=== PATIENT | female | born 1955 | race Caucasian/White ===

== ENCOUNTER 2016-07-24 21:30 | Emergency (ER) | payer OTHER ==
[2016-07-24 21:18] LABS: BASOPHILS 0.6 %; BASOPHILS ABSOLUTE 0.07 10/3/uL (0.0-0.16); EOSINOPHILS 4.5 %; EOSINOPHILS ABSOLUTE 0.57 10/3/uL (0.0-0.53); IMMATURE GRANULOCYTES 0.8 %; LYMPHOCYTES 24.9 %; LYMPHOCYTES ABSOLUTE 3.16 10/3/uL (0.67-4.30); MEAN CORPUSCULAR HEMOGLOB 29.3 pg (26.0-34.0); MEAN PLATELET VOLUME 9.6 fL (9.2-13.0); MONOCYTES 5.4 %; MONOCYTES ABSOLUTE 0.69 10/3/uL (0.21-1.20); NEUTROPHILS 63.8 %; NEUTROPHILS ABSOLUTE 8.08 10/3/uL (2.02-8.40); PLATELET COUNT 295 10/3/uL (150-400); RBC DISTRIBUTION WIDTH 15.3 % (12.0-16.0); WHITE BLOOD CELLS 12.7 10/3/uL (4.5-10.5)
[2016-07-24 21:19] LABS: HEMATOCRIT 37.4 % (36.0-48.0); HEMOGLOBIN 12.3 g/dL (12.0-16.0); MANUAL DIFF NO %; MEAN CORPUS HGB CONC 32.9 g/dL (32.0-36.0)
[~2016-07-24 21:30] MED LIST: ACIDOPHILU2 PO; ADVIL PO; AMB10 PO; AMB5 PO; AMIT50 PO; AMOX250SUS PO; ASA5GR PO; ASAB PO; ATIVAN2 MG PO; ATV1 PO; BACTROCR TOP; BEN25 PO; BISR PR; BIST PO; C1 PO; CALAMIN3 TOP; CARDU2 PO; CELEXA10 PO; CENTRUM TAB1 TAB PO; CO Q-10200 MG PO; COLCH6 PO; COREG6 PO; COUMADIN3 MG PO; COUMADIN4 MG PO; CRESTOR10 PO; CUBICIN500 MG IV; CYANO1000T PO; CYMBALTA60 PO; DIL4TAB PO; DSS PO; DURA100 TOP; DURA12 TOP; EFFEXOR XR150 MG PO; FENTANYL TOP; FERRETTS325 MG PO; FERROUS SULF325 M1 PO; FLEX PO; FLORASTOR250 MG PO; FOLIC ACID400 MC1 PO; FOLIC PO; GLUCOPHXR PO; GLUCPH PO; HCTZ25B PO; HEMOCYTE324 MG PO; HUMALOG SC; HYDROCHLOROT25 MG PO; IMOD PO; INSNOVR SC; IRON PO; IRON325 MG PO; JANUVIA100 MG PO; JANUVIA25 MG PO; K-TABS10 MEQ PO; KDUR10 PO; KLOR-CON 1010 MEQ PO; KLOR-CON M1010 MEQ PO; KLOR-CON M2020 MEQ PO; L20 PO; L40 PO; LANTUS SC; LEVEMFLXPN SC; LEVEMIR SC; LEVOTHYROXIN75 MCG PO; LEXAPRO10 PO; LIOR10 PO; LIPITOR40 PO; LISINOPRIL40 MG PO; LOP25 PO; LOP50 PO; LORTAB10 PO; LORTABLIQ PO; LOVENOX SC; LUNESTA3 MG PO; METHOC500B PO; MIRALAX POWDER1 PKT PO; MIRALAXPKT PO; MOMUD PO; MULTIPLE VIT PO; MULTIVITAMI1 PO; MYLUD PO; NAFCILLIN IV; NAFCILLIN10 GM IV; NEUR300 PO; NEUR600 PO; NEUR800 PO; NORCO1 TA2 PO; NORV5 PO; NOVOLOG SC; NOVOLOG SQ; NOVOLOGMIX SC; NOVOPEN SC; OCEAN NAS; OXYCOD PO; OXYCON10 PO; OXYCON20 PO; PCET PO; PEP20 PO; PERCOCET 10/3251 TAB PO; PERCOCET1 TA2 PO; PERCOCET1 TA4 PO; PR25 PO; PR25R PR; PRILO PO; PRILOSEC40 MG PO; PRIN10 PO; PRIN20 PO; PRISTIQ50 MG PO; PROAIR HFA INH; REM15 PO; ROBITUSS12 OR; STOOL SOFTEN100 MG PO; SYN075 PO; SYN88 PO; T PO; THERGRANM PO; TYLENOL 8 HR650 MG PO; V5 PO; VANCO500 IV; VIB100 PO; VICTOZA18 MG/3 ML SC; VIT B-SIX 50 MG50 MG OR; VITAMIN C PO; VITAMIN C100 MG PO; VITAMIN D1000 UNI1 PO; VITAMIN D2000 UNIT PO; VITAMIN D31000 UNIT PO; VOLT75 PO; VYTORIN 10/40 T1 TAB PO; ZETIA PO; ZOCOR20; ZOCOR40 PO; ZOFRAN ODT4 MG PO; ZOFRAN2ML IM; ZOFRAN8 PO; ZOSYN375 IV; [UNRECOGNIZED DRUG - CODE]; [UNRECOGNIZED DRUG - OTHER] IV; [UNRECOGNIZED DRUG - OTHER] PO; [UNRECOGNIZED DRUG - REMARK] TOP
[2016-07-24 21:32] LABS: A/G RATIO 0.7 (0.7-1.9); ALBUMIN 3.4 G/DL (3.5-5.0); BUN (BLOOD UREA NITROGEN) 25 MG/DL (6-23); CALCIUM, SERUM 9.2 MG/DL (8.5-10.4); CHLORIDE, SERUM 100 MMOL/L (96-112); CO2 (CARBON DIOXIDE) 26 MMOL/L (24-34); CREATININE 1.61 MG/DL (0.55-1.02); GFR AFRICAN AMERICAN 39 ML/MIN (>=60); GFR NON AFRICAN AMERICAN 34 ML/MIN (>=60); GLOBULIN 4.8 G/DL (2.5-4.1); GLUCOSE, SERUM 219 MG/DL (60-99); POTASSIUM, SERUM 4.1 MMOL/L (3.5-5.3); SGOT(AST) 30 U/L (5-40); SGPT(ALT) 27 U/L (5-65); SODIUM, SERUM 137 MMOL/L (135-148); TOTAL PROTEIN 8.2 G/DL (6.0-8.5)
[2016-07-24 21:33] LABS: ALKALINE PHOSPHATASE 106 U/L (45-117); TOTAL BILIRUBIN 0.2 MG/DL (0-1.2)
[2016-07-24 21:42] LABS: LACTATE 2.3 MMOL/L (0.3-2.4)
== END 2016-07-24 23:00 | disposition home or self-care (01) ==
LOC: ER 21:30
PROVIDERS: Emergency Medicine
DX: M96.89 Other intraoperative and postprocedural complications and disorders of the musculoskeletal system (principal); L97.329 Non-pressure chronic ulcer of left ankle with unspecified severity; G47.30 Sleep apnea, unspecified; F32.9 Major depressive disorder, single episode, unspecified; F41.9 Anxiety disorder, unspecified; E11.9 Type 2 diabetes mellitus without complications; Z88.2 Allergy status to sulfonamides; Z87.01 Personal history of pneumonia (recurrent); Z88.8 Allergy status to other drugs, medicaments and biological substances; Z79.4 Long term (current) use of insulin; Z79.899 Other long term (current) drug therapy; Z79.82 Long term (current) use of aspirin
CPT/HCPCS: 80053; 83605; 85025; 87040; 87070; 87077; 87186; 87205; 96365; 99283